=== PATIENT | male | born 1965 | race African-American/Black ===

== ENCOUNTER 2017-03-01 17:36 | Emergency (ER) | payer OTHER, SELFPAY ==
[~2017-03-01] VITALS: Ht 172.7 cm; Wt 122.5 kg
[2017-03-01 17:36] VITALS: BP 133/74
[2017-03-01] MEDS ORDERED: PROAAER10 INH (17:54)
[2017-03-01] MEDS ORDERED: COUM10TA PO (17:55)
[2017-03-01] MEDS ORDERED: ALBU17IN INH (18:04)
[2017-03-01] MEDS ORDERED: ALBUTEROL 90 MCG/ACT 8GM HFA INHALER INH ONE (18:15)
== END 2017-03-01 18:26 | disposition home or self-care (01) ==
LOC: M ED 18:11
DX: Z76.0 Encounter for issue of repeat prescription (principal)